=== PATIENT | male | born 1980 | race Caucasian/White ===

== ENCOUNTER 2017-08-23 07:03 | Day surgery (SDC) | payer MEDICAID ==
[~2017-08-23 07:03] MED LIST: Lactated Ringers 1,000 ML IV SCH; Lidocaine 1%/Sod Bicarbonate in NS 8.4% 1 ML Syringe PRN; Sodium Chloride 0.9% 10 ML Syringe FLUSH PRN
[2017-08-23] MEDS ORDERED: fentaNYL 250 MCG/5 ML SDV ONE (07:08)
[2017-08-23] MEDS ORDERED: Midazolam 1 MG/ML 2 ML SDV ONE (07:08)
[2017-08-23] MEDS ORDERED: Propofol 200 MG/20 ML SDV ONE ×3 (07:08→09:12)
[2017-08-23] MEDS ORDERED: Lidocaine 1% with EPINEPHrine 1:100,000 20 ML MDV ONE (07:11)
[2017-08-23] MEDS ORDERED: ceFAZolin 1 GM Vial ONE (07:12)
[2017-08-23] MEDS ORDERED: Lidocaine 1% 4 ML ONE (07:12)
[2017-08-23] MEDS ORDERED: Bupivacaine 0.5%/EPINEPHrine 1:200,000 50 ML MDV ONE (07:12)
[2017-08-23] MEDS ORDERED: Dexamethasone 4 MG/ML 5 ML MDV ONE (07:12)
[2017-08-23] MEDS ORDERED: Lactated Ringers 1,000 ML ONE (07:12)
[2017-08-23] MEDS ORDERED: Ondansetron 4 MG/2 ML SDV ONE (07:12)
--- NOTE | 2017-08-23 07:22 | PCM.PREANE ---
Preanesthetic Assessment - Anesthesia/Transfusion/Family Hx Anesthesia History: Prior Anesthesia Without Reaction Family History of Anesthesia Reaction: No Transfusion History: No Prior Transfusion(s) Intubation History: Unknown - Review of Systems General: No Symptoms Pulmonary: Cough, Sputum (Morning Cough productive chronic, former smoker) Gastrointestinal: Abdominal Pain (When lifting) Neurological: Headache (Migraines ), Seizure (Has not had one in a long time. ) , Other (Concussions in past history. Most recent in 2014. No residule effects noted. ) Other: Reports: Sinus Problem (Sinus drainage on and off. ) - Physical Assessment NPO Status Date: 08/22/17 NPO Status Time: 23:00 Pulse: 97 O2 Sat by Pulse Oximetry: 96 Respiratory Rate: 16 Blood Pressure: 121/83 Temperature: 36.8 C Weight: 124 kg ASA Class: 2 Mental Status: Alert & Oriented x3 Airway Class: Mallampati = 1 Dentition: Reports: Normal Dentition Thyro-Mental Finger Breadths: 3 Mouth Opening Finger Breadths: 3 ROM/Head Extension: Full Lungs: Clear to Auscultation, Normal Respiratory Effort Cardiovascular: Regular Rate, Regular Rhythm - Allergies Allergies/Adverse Reactions: Allergies Allergy/AdvReac Type Severity Reaction Status Date / Time No Known Allergies Allergy Verified 08/22/17 13:47 - Acknowledgements Anesthesia Type Planned: General Anesthesia Pt an Appropriate Candidate for the Planned Anesthesia: Yes Alternatives and Risks of Anesthesia Discussed w Pt/Guardian: Yes Pt/Guardian Understands and Agrees with Anesthesia Plan: Yes PreAnesthesia Questionnaire HEENT History: Reports: None Cardiovascular History: Reports: None Respiratory History: Reports: None Gastrointestinal History: Reports: Other (See Below) Other Gastrointestinal History: umbilical hernia Genitourinary History: Reports: None 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 Musculoskeletal History: Reports: None Neurological History: Reports: Migraines, Seizure Psychiatric History: Reports: Addiction, Other (See Below) Other Psychiatric History: history of ETOH abuse Endocrine/Metabolic History: Reports: None Hematologic History: Reports: None Immunologic History: Reports: None Oncologic (Cancer) History: Reports: None Dermatologic History: Reports: None - Past Surgical History Head Surgeries/Procedures: Reports: None HEENT Surgical History: Reports: None Cardiovascular Surgical History: Reports: None Respiratory Surgical History: Reports: None GI Surgical History: Reports: None Female Surgical History: Reports: None Male Surgical History: Reports: None Endocrine Surgical History: Reports: None Neurological Surgical History: Reports: None Musculoskeletal Surgical History: Reports: Other (See Below) Other Musculoskeletal Surgeries/Procedures:: left ankle surgery Oncologic Surgical History: Reports: None Dermatological Surgical History: Reports: None - SUBSTANCE USE Smoking Status *Q: Former Smoker Days Per Week of Alcohol Use: 7 (Denies using alcohol for the past 5 years. ) Recreational Drug Use History: No - HOME MEDS Home Medications: Home Meds Delmita-3 Fatty Acids [Delmita-3] 100 mg PO DAILY 08/22/17 [History] - CURRENT (IN HOUSE) MEDS Current Meds: Current Medications Lactated Ringer's (Ringers, Lactated) 1,000 mls @ 125 mls/hr IV ASDIRECTED JEET Stop: 08/23/17 23:00 Lidocaine/Sodium Bicarbonate (Buffered Lidocaine 1% In Ns 8.4%) 0.25 ml .XX ONETIME PRN PRN Reason: Prior to IV Start Stop: 08/23/17 18:00 Sodium Chloride (Saline Flush) 10 ml FLUSH ASDIRECTED PRN PRN Reason: Keep Vein Open Stop: 08/23/17 18:00 Discontinued Medications Cefazolin Sodium (Ancef) Confirm Administered Dose 2 gm .ROUTE .STK-MED ONE Stop: 08/23/17 07:13 Dexamethasone (Dexamethasone) Confirm Administered Dose 20 mg .ROUTE .STK-MED ONE Stop: 08/23/17 07:13 Fentanyl (Sublimaze) Confirm Administered Dose 250 mcg .ROUTE .STK-MED ONE Stop: 08/23/17 07:09 Lactated Ringer's (Ringers, Lactated) Confirm Administered Dose 1,000 mls @ as directed .ROUTE .STK-MED ONE Stop: 08/23/17 07:13 Lidocaine HCl (Xylocaine-Mpf 1%) Confirm Administered Dose 4 mls @ as directed .ROUTE .STK-MED ONE Stop: 08/23/17 07:13 Midazolam HCl (Versed 1 Mg/Ml) Confirm Administered Dose 2 mg .ROUTE .STK-MED ONE Stop: 08/23/17 07:09 Ondansetron HCl (Zofran) Confirm Administered Dose 4 mg .ROUTE .STK-MED ONE Stop: 08/23/17 07:13 Propofol (Diprivan 20 Ml) Confirm Administered Dose 400 mg .ROUTE .STK-MED ONE Stop: 08/23/17 07:09
[2017-08-23] MEDS ORDERED: Haloperidol Lactate 5 MG/ML SDV IVPUSH ONE (08:39)
[2017-08-23] MEDS ORDERED: HYDROmorphone 0.5 MG/0.5 ML Syringe IVPUSH PRN (08:39)
[2017-08-23] MEDS ORDERED: HYDROmorphone 1 MG/ML Syringe ONE (08:39)
[2017-08-23] MEDS ORDERED: Ketorolac 30 MG/ML SDV ONE (09:04)
--- NOTE | 2017-08-23 09:42 | PCM.POSTAN ---
POST ANESTHESIA ASSESSMENT - MENTAL STATUS Mental Status: Alert, Oriented - VITAL SIGNS Pulse Rate: 101 SaO2: 95 Resp Rate: 19 Blood Pressure: 120/64 Temperature: 36.6 C - RESPIRATORY Respiratory Status: Respiratory Rate WNL, Airway Patent, O2 Saturation Stable, Supplemental Oxygen - CARDIOVASCULAR CV Status: Pulse Rate WNL, Blood Pressure Stable - GASTROINTESTINAL GI Status: No Symptoms - PAIN Pain Score: 5 (Medication administered) - POST OP HYDRATION Hydration Status: Adequate & Stable
[2017-08-23] MEDS: fentaNYL 100 MCG/2 ML SDV IVPUSH PRN ×2 (09:43→09:57)
[2017-08-23] MEDS ORDERED: Acetaminophen/Codeine 300-30 MG Tab PO ONE (11:10)
--- NOTE | 2017-08-23 13:00 | PCM48HPAN ---
Post Anesthesia Note - EVALUATION WITHIN 48HRS OF ANESTHETIC Vital Signs in Normal Range: Yes Patient Participated in Evaluation: Yes Respiratory Function Stable: Yes Airway Patent: Yes Cardiovascular Function Stable: Yes Hydration Status Stable: Yes Pain Control Satisfactory: Yes Nausea and Vomiting Control Satisfactory: Yes Mental Status Recovered: Yes
--- NOTE | 2017-08-25 17:57 | PCM.OPNOTE ---
- General Post-Op/Procedure Note Date of Surgery/Procedure: 08/23/17 Operative Procedure(s): Open umbilical hernia repair with mesh Findings: 2 cm umbilical defect containing herniated omentum Pre Op Diagnosis: Incarcerated symptomatic umbilical hernia Post-Op Diagnosis: Same Anesthesia Technique: General LMA, Local Primary Surgeon: Richy Aldrich Pathology: None EBL in mLs: 2 Complications: None Condition: Good Free Text/Narrative:: After adequate LMA general anesthesia was obtained the patient's abdomen was prepped and draped sterilely for the hernia repair. A supraumbilical incision was made with a 15 blade after local analgesia was given. This incision was deepened to the herniation. I the umbilical skin from the leading edge of the hernia sharply. I made a small hole in the skin and I used Vicryl to close this. I then the hernia sac away from the surrounding subcutaneous tissues down to the fascia with Metzenbaums scissors. I opened the sac at the base of the fascial defect. The sac contained omentum which was reduced into the abdomen. The defect was about 2 cm in size. I then placed a 4.3 cm mesh through the defect and secured it to the fascia with interrupted 0 Ethibond sutures. I irrigated out the field with saline. I closed the subcutaneous tissues after re-attaching the umbilical skin to the midline. I used Vicryl for this and then used 4-0 Vicryl for the skin. Steri-Strips and gauze were used for the dressing. There were no complications.
== END 2017-08-23 11:47 | disposition home or self-care (01) ==
LOC: JD.SDS 07:03
PROVIDERS: ATTEND Surgery
DX: K42.0 Umbilical hernia with obstruction, without gangrene (principal); G43.909 Migraine, unspecified, not intractable, without status migrainosus; Z79.899 Other long term (current) drug therapy; Z83.3 Family history of diabetes mellitus; Z87.891 Personal history of nicotine dependence; Z98.890 Other specified postprocedural states
CPT/HCPCS: 36415; 49587; 85025; 85610; A9270; C1781; J0690; J1100; J1170; J1885; J2250; J2405; J3010; J7120; 00830; J2704

== ENCOUNTER 2022-05-19 11:15 | Emergency (ER) | payer BC, MEDICAID | END 2022-05-19 13:20 | disposition home or self-care (01) | LOC: JD.ED 11:15 | DX: R07.89 Other chest pain (principal); Z86.16 Personal history of COVID-19 | CPT/HCPCS: 36415; 71045; 71045-26; 80053; 83735; 84484; 85025; 85379; 93010; 93225; 93226; 99284; 99285 ==

== ENCOUNTER 2023-02-12 19:17 | Emergency (ER) | payer BC ==
[2023-02-12] MEDS ORDERED: Orphenadrine 100 MG Tab.ER PO ONE (22:14)
[2023-02-13] MEDS ORDERED: Orphenadrine 100 MG Tab.ER PO ONE (22:14)
== END 2023-02-12 22:50 | disposition home or self-care (01) ==
LOC: JD.ED 19:17
DX: S39.012A Strain of muscle, fascia and tendon of lower back, initial encounter (principal); N43.3 Hydrocele, unspecified; Z86.16 Personal history of COVID-19; X50.0XXA Overexertion from strenuous movement or load, initial encounter
CPT/HCPCS: 72100; 76870; 81003; 93975; 99283; A9270

== ENCOUNTER 2023-04-12 09:55 | Emergency (ER) | payer OTHER, BC | END 2023-04-12 13:27 | disposition home or self-care (01) | LOC: JD.ED 09:55 | DX: S81.811A Laceration without foreign body, right lower leg, initial encounter (principal); S86.911A Strain of unspecified muscle(s) and tendon(s) at lower leg level, right leg, initial encounter; Z86.16 Personal history of COVID-19; W22.8XXA Striking against or struck by other objects, initial encounter; Y92.89 Other specified places as the place of occurrence of the external cause; Y99.0 Civilian activity done for income or pay | CPT/HCPCS: 73564-26-RT; 73564-RT; 73590-26-RT; 73590-RT; 99283 ==